=== PATIENT | female | born 1955 | race Caucasian/White ===

== ENCOUNTER → 2017-02-04 | Outpatient (CLI) | payer OTHER ==
[~2017-02-04] MED LIST: ACIDOPHILUS1 EAC3 PO; BERBERINE PO; CALCIUM + D3 E1 EACH PO; DIGESTIVE PROB1 EACH PO; EMERGEN-C 1,01000 MG PO; PROBIOTIC1 EAC5 PO; THYROID ACTIVATOR PO; [UNRECOGNIZED DRUG - OTHER] PO; [UNRECOGNIZED DRUG - OTHER] PO
== END | disposition home or self-care (01) ==
LOC: CDC 15:25
DX: Z01.810 Encounter for preprocedural cardiovascular examination (principal); L98.9 Disorder of the skin and subcutaneous tissue, unspecified
CPT/HCPCS: 93000

== ENCOUNTER 2017-02-19 09:58 | Day surgery (SDC) | payer OTHER ==
[~2017-02-19] VITALS: Ht 167.6 cm; Wt 58.9 kg
[~2017-02-19 09:58] MED LIST changes: +ARNICA PO; +LUTEIN10 MG PO; +OMEGA 3 500 SO1 EACH PO; +[UNRECOGNIZED DRUG - OTHER] PO
[2017-02-19 10:55] LABS: HEMATOCRIT 40.7 % (36.0-46.0); MCH 30.2 PG (29.0-34.0); MCHC 33.4 G/DL (30.0-36.0); MCV 90.4 FL (83-99); PLATELET COUNT 237 K/uL (156-360); RBC DIS.WIDTH-SD 39.8 % (39-53); WHITE BLOOD COUNT 4.2 K/uL (4.1-10.2)
[2017-02-19 11:22] VITALS: BP 109/64
[2017-02-19] MEDS ORDERED: HYDROCODON-ACE1 EAC7 PO (15:25)
[2017-02-19 16:03] VITALS: BP 106/541
[2017-02-19 16:40] VITALS: BP 96/57
== END 2017-02-19 16:51 | disposition home or self-care (01) ==
LOC: SDC 09:58
PROVIDERS: Surgery
PROC: 0KB50ZZ Excision of Right Shoulder Muscle, Open Approach (ICD-10-PCS; principal; 2017-02-19)
DX: M62.89 Other specified disorders of muscle (principal); E04.1 Nontoxic single thyroid nodule; E78.5 Hyperlipidemia, unspecified; K21.9 Gastro-esophageal reflux disease without esophagitis; Z88.6 Allergy status to analgesic agent; Z88.5 Allergy status to narcotic agent; Z88.2 Allergy status to sulfonamides
CPT/HCPCS: 85027; 88304; J0690; J1885; J2250; J2405; J3010; Q0175; S0020